=== PATIENT | female | born 1990 | race Caucasian/White ===

== ENCOUNTER 2017-07-06 23:03 | Emergency (ER) | payer MEDICAID, OTHER ==
[~2017-07-06] VITALS: Ht 167.6 cm; Wt 60.4 kg
[~2017-07-06 23:03] MED LIST: IBUP-1222 PO; OXYC-302 PO
[2017-07-06 23:04] VITALS: BP 122/74
== END 2017-07-06 23:47 | disposition home or self-care (01) ==
LOC: ED 23:35
DX: K04.7 Periapical abscess without sinus (principal)
CPT/HCPCS: 99283

== ENCOUNTER 2020-03-25 23:28 | Emergency (ER) | payer SELFPAY ==
[~2020-03-25] VITALS: Ht 167.6 cm; Wt 77.0 kg
[2020-03-26] MEDS ORDERED: LORazepam 1MG TABLET ONE (00:18)
[2020-03-26] MEDS ORDERED: ONDANSETRON ODT 4 MG ONE (00:20)
--- NOTE | 2020-03-26 00:20 | NUR ---
PT CURRENTLY NAUSEATED AT THIS TIME, DOES NOT FEEL THAT SHE CAN TAKE THE ATIVAN, WILL CHECK WITH PROVIDER FOR ANTINAUSEA MEDS.
[2020-03-26] MEDS ORDERED: LORazepam 1MG TABLET PO ONE (00:30)
[2020-03-26 00:48] LABS: BASOPHILS # (AUTO) 0.01 x10^3/uL (0-0.1); BASOPHILS % (AUTO) 0 % (0-1); EOSINOPHILS % (AUTO) 0 % (1-7); LYMPHOCYTES # (AUTO) 1.34 x10^3/uL (1-3.4); LYMPHOCYTES % (AUTO) 21 % (22-44); MD NO; MEAN CORPUSCULAR HEMOGLOBIN 30.6 pg (27.0-34.8); MEAN CORPUSCULAR HGB CONC 33.4 g/dL (32.4-35.8); MEAN CORPUSCULAR VOLUME 91.7 fL (80-100); MEAN PLATELET VOLUME 9.2 fL (7.4-10.4); MONOCYTES # (AUTO) 0.43 x10^3/uL (0.2-0.8); MONOCYTES % (AUTO) 7 % (2-9); NEUTROPHILS # (AUTO) 4.68 x10^3/uL (1.8-6.8); NEUTROPHILS % (AUTO) 73 % (42-75); PLATELET COUNT 296 x10^3/uL (130-400); RED BLOOD COUNT 4.61 x10^6/uL (3.82-5.3)
[2020-03-26 00:51] LABS: ALANINE AMINOTRANSFERASE 19 U/L (12-78); ALBUMIN 4.6 g/dL (3.4-5.0); ANION GAP 11 mmol/L (5-15); CALCIUM 10.9 mg/dL (8.5-10.1); CHLORIDE 106 mmol/L (98-107); CREATININE 0.85 mg/dL (0.55-1.02)
[2020-03-26 00:54] LABS: ALKALINE PHOSPHATASE 41 U/L (45-117); TOTAL PROTEIN 8.6 g/dL (6.4-8.2)
[2020-03-26] MEDS ORDERED: ONDANSETRON 4 MG TABLET PO ONE (01:00)
[2020-03-26] MEDS ORDERED: ONDANSETRON ODT 4 MG PO ONE (01:00)
[2020-03-26] MEDS ORDERED: sub (01:23)
--- NOTE | 2020-03-26 02:03 | NUR ---
re-evaluation done. patient states having epigastric pain and still not feeling well. explained to patient and discussed why she is having pain. instruction and prescription given. verbalized undertanding.
[2020-03-26 02:04] VITALS: BP 134/89
== END 2020-03-26 02:06 | disposition home or self-care (01) ==
LOC: ED 03-26 02:04
DX: F41.1 Generalized anxiety disorder (principal); F15.10 Other stimulant abuse, uncomplicated; R10.84 Generalized abdominal pain; R06.02 Shortness of breath; R00.2 Palpitations; R11.2 Nausea with vomiting, unspecified; R19.7 Diarrhea, unspecified; F17.210 Nicotine dependence, cigarettes, uncomplicated; R00.0 Tachycardia, unspecified; Z72.9 Problem related to lifestyle, unspecified
CPT/HCPCS: 36415; 71046; 80053; 85025; 93005; 99285; 99406; Q0162